=== PATIENT | male | born 1940 | race Caucasian/White ===

== ENCOUNTER 2024-06-25 14:05 | Emergency (ER) | payer BC, MEDICARE, OTHER ==
[~2024-06-25] VITALS: Ht 180.3 cm; Wt 70.3 kg
[2024-06-25] MEDS: IV NORMAL SALINE 1000 ML BAG IV ONE (14:56)
[2024-06-25] MEDS ORDERED: DUTA0.5C PO (15:05)
[2024-06-25] MEDS ORDERED: TADA5TAB2 PO (15:05)
[2024-06-25] MEDS ORDERED: [UNRECOGNIZED DRUG - OTHER] SUBCUT (15:05)
[2024-06-25] MEDS ORDERED: LAMO150T2 PO (15:05)
[2024-06-25 15:25] LABS: CALCIUM 7.9 mg/dL (8.5-10.1); CARBON DIOXIDE 27 mmol/L (21-32); CHLORIDE 101 mmol/L (98-107); CREATININE 1.6 mg/dL (0.6-1.3); GLUCOSE 111 mg/dL (74-106); POTASSIUM 3.4 mmol/L (3.5-5.1); SODIUM SERUM 138 mmol/L (136-145); UREA NITROGEN, BLOOD 34 mg/dL (7-18)
[2024-06-25 15:26] LABS: BASOPHILS % (AUTO) 0.1 % (0.0-2.0); EOSINOPHILS % (AUTO) 0.1 % (0.0-7.0); HEMOGLOBIN 13.1 g/dL (12.5-16.3); LYMPHOCYTES # (AUTO) 0.1 K/uL (0.8-4.8); LYMPHOCYTES % (AUTO) 1.4 % (20.5-51.5); MEAN CORPUSCULAR HEMOGLOBIN 26.1 uug (23.8-33.4); MEAN CORPUSCULAR HGB CONC 33 g/dL (32.5-36.3); MEAN CORPUSCULAR VOLUME 79.6 fL (73.0-96.2); MONOCYTES # (AUTO) 0.1 K/uL (0.1-1.30); MONOCYTES % (AUTO) 2.4 % (0.0-11.0); NEUTROPHILS # (AUTO) 6.1 K/uL (1.8-8.9); PLATELET COUNT (AUTO) 58 K/uL (152-348); RED BLOOD CELL COUNT(AUTO) 5.03 MIL/uL (4.06-5.63); WHITE BLOOD COUNT (AUTO) 6.3 K/uL (3.6-10.2)
[2024-06-25 15:27] LABS: DIFFERENTIAL COMMENT 1
[2024-06-25 15:36] LABS: LACTIC ACID 2.3 mmol/L (0.4-2.0)
[2024-06-25] MEDS ORDERED: POTASSIUM BICARBONATE/CIT AC 25 MEQ TABLET.EFF ONE (15:38)
[2024-06-25 15:39] LABS: ALANINE AMINOTRANSFERASE 76 U/L (16-63); ALBUMIN 2.9 g/dL (3.4-5.0); ALKALINE PHOSPHATASE 172 U/L (50-136); ASPARTATE AMINOTRANSFERASE 62 U/L (15-37); BILIRUBIN,TOTAL 1.5 mg/dL (0.2-1.0); TOTAL PROTEIN, SERUM 5.5 g/dL (6.4-8.2)
[2024-06-25] MEDS: POTASSIUM BICARBONATE/CIT AC 25 MEQ TABLET.EFF PO ONE (15:42)
[2024-06-25] MEDS: MAGNESIUM SULFATE/D5W 100 ML IV SCH (15:42)
[2024-06-25 16:57] LABS: *BILIRUBIN,URIN 1+ (NEGATIVE); *BLOOD, URINE 1+ (NEGATIVE); *CLARITY,URINE CLEAR (CLEAR); *KETONES,URINE NEGATIVE (NEGATIVE); *PROTEIN,URINE 2+ (NEGATIVE); LEUKOCYTE ESTERASE ,URINE NEGATIVE (NEGATIVE); NITRITE, URINE NEGATIVE (NEGATIVE); UGLUCOSE NEGATIVE (NEGATIVE)
[2024-06-25 17:01] LABS: *COLOR,URINE DARK YELLOW (YELLOW)
[2024-06-25] MEDS ORDERED: ASPIRIN 81 MG TAB.CHEW ONE (17:06)
[2024-06-25] MEDS ORDERED: MAGNESIUM SULFATE/D5W 100 ML ONE (17:07)
[2024-06-25] MEDS: ASPIRIN 81 MG TAB.CHEW PO ONE (17:14)
[2024-06-25 17:21] LABS: BACTERIA,URINE FEW /HPF (NONE SEEN); RBC,URINE 0-3 /HPF (0-3); SQUAMOUS EPITHELIAL CELL,UR FEW /HPF (NONE SEEN); WBC,URINE 0-3 /HPF (0-3)
[2024-06-25 17:22] LABS: NT-PRO BNP 2813 pg/mL (0-125)
[2024-06-25 20:01] LABS: BAND % (MANUAL) 15 % (0-10); LYMPHOCYTES % (MANUAL) 1 % (20-40); MONOCYTES % (MANUAL) 3 % (2-10); NEUTROPHILS % (MANUAL) 81 % (42-75); PLATELET ESTIMATE DECREASED
[2024-06-25 20:02] LABS: ANISOCYTOSIS 1+; OVALOCYTES 1+; TEAR DROP CELLS 1+
[2024-06-25 20:15] VITALS: O2SAT 95
== END 2024-06-25 20:25 | disposition left against medical advice (07) ==
LOC: ER 14:05
DX: I21.9 Acute myocardial infarction, unspecified (principal); N40.0 Benign prostatic hyperplasia without lower urinary tract symptoms; I50.9 Heart failure, unspecified; D72.810 Lymphocytopenia; D69.6 Thrombocytopenia, unspecified; E87.6 Hypokalemia; Z20.822 Contact with and (suspected) exposure to COVID-19; Z79.899 Other long term (current) drug therapy
CPT/HCPCS: 99291; 96365; 76705; 96366; 96361; 87426; 80076; 80048; 81001; 82607; 83880; 83690; 83735; 85025; 84145; 85730; 87040 ×2; 87186 ×2; 87077; 84484 ×2; 36415; 71045; 93005; 83605 ×2; 87086; 85007; J3475; J7040; 70030-TC; A4606; A4663